=== PATIENT | female | born 1995 | race Two or more races ===

== ENCOUNTER 2021-04-06 06:41 | Inpatient (IN) ==
[2021-04-06] MEDS ORDERED: PITOCIN ONE ×2 (06:50→15:36)
[2021-04-06] MEDS ORDERED: D5 1/2 NS 1,000 ML 1,000 ML IV ONE (06:50)
[2021-04-06] MEDS ORDERED: BETADINE SOLN ONE (06:50)
[2021-04-06] MEDS ORDERED: D5 1/2 NS 1,000 mL + PITOCIN 20 UNITS/L IV 20 UNITS/1,000 ML BAG IV ONE (06:51)
[2021-04-06] MEDS ORDERED: D5 LR + PITOCIN 10 UNITS/L 10 UNITS/1,000 ML BAG IV ONE ×2 (06:51→15:36)
[2021-04-06] MEDS ORDERED: PITOCIN IVP ONE (07:30)
[2021-04-06] MEDS ORDERED: D5 LR + PITOCIN 10 UNITS/L 10 UNITS/1,000 ML BAG IV PRN (07:30)
[2021-04-06] MEDS ORDERED: REGLAN INJ 10 MG VIAL IVP PRN (07:30)
[2021-04-06] MEDS ORDERED: PHENERGAN INJ 25 MG IM PRN (07:30)
[2021-04-06] MEDS ORDERED: STADOL INJ IVP PRN (07:32)
[2021-04-06 08:01] LABS: BASOPHILS % (AUTO) 0.2 % (0.2-1.0); EOSINOPHILS % (AUTO) 0.2 % (0.9-2.9); HEMATOCRIT 36.5 % (36.0-47.0); HEMOGLOBIN 12.2 g/dL (12.0-16.0); LYMPHOCYTES # (AUTO) 1.4 X10^3/uL (1.3-2.9); LYMPHOCYTES % (AUTO) 16.1 % (21.0-51.0); MEAN CORPUSCULAR HEMOGLOBIN 27.9 pg (27.0-34.0); MEAN CORPUSCULAR HGB CONC 33.5 g/dL (33.0-35.0); MEAN CORPUSCULAR VOLUME 83.3 fL (80.0-100.0); MEAN PLATELET VOLUME 8.8 fL (7.4-11.0); MONOCYTES # (AUTO) 0.5 x10^3/uL (0.3-0.8); MONOCYTES % (AUTO) 5.7 % (0.0-13.0); NEUTROPHILS # (AUTO) 6.6 x10^3/uL (2.2-4.8); NEUTROPHILS % (AUTO) 77.8 % (42.0-75.0); PLATELET COUNT 201 X10^3/uL (150.0-450.0); RED BLOOD COUNT 4.38 X10^6/uL (3.5-5.4); RED CELL DISTRIBUTION WIDTH 14.5 % (11.6-16.5); WHITE BLOOD COUNT 8.5 X10^3/uL (3.6-10.0)
[2021-04-06 08:04] LABS: BLOOD UREA NITROGEN 10 mg/dL (7-18); CALCIUM 8.2 mg/dL (8.5-10.1); CARBON DIOXIDE 22.5 mmol/L (21-32); CHLORIDE 105 mmol/L (98-107); CREATININE 0.59 mg/dL (0.55-1.02); SODIUM 138 mmol/L (136-145); eGFR NON BLACK RACES > 60 (>60)
[2021-04-06 08:22] LABS: BILIRUBIN,URINE NEGATIVE (NEGATIVE); BLOOD/HEMOGLOBIN,URINE 1+ (NEGATIVE); GLUCOSE, URINE NEGATIVE (NEGATIVE); KETONES,URINE 1+ (NEGATIVE); LEUKOCYTE ESTERASE ,URINE 1+ (NEGATIVE); NITRITES,URINE NEGATIVE (NEGATIVE); PROTEIN,URINE 2+ (NEGATIVE); UROBILINOGEN,URINE 1+ (NORMAL)
[2021-04-06 08:25] LABS: APPEARANCE,URINE HAZY (CLEAR); COLOR,URINE YELLOW (YELLOW)
[2021-04-06 18:31] VITALS: BP 118/90
== END 2021-04-06 18:40 | disposition home or self-care (01) | DRG 833 ==
LOC: LD 06:41
PROVIDERS: ADMIT Obstetrics & Gynecology Obstetrics; ATTEND Obstetrics & Gynecology Obstetrics
DX: Z20.822 Contact with and (suspected) exposure to COVID-19; Z3A.38 38 weeks gestation of pregnancy; O61.8 Other failed induction of labor

== ENCOUNTER 2021-04-14 06:44 | Inpatient (IN) ==
[2021-04-14] MEDS ORDERED: D5 1/2 NS 1,000 ML 1,000 ML IV ONE (06:55)
[2021-04-14] MEDS ORDERED: PITOCIN ONE (06:55)
[2021-04-14] MEDS ORDERED: D5 LR + PITOCIN 10 UNITS/L 10 UNITS/1,000 ML BAG IV ONE (06:56)
[2021-04-14] MEDS ORDERED: BETADINE SOLN ONE (06:56)
[2021-04-14] MEDS: D5 1/2 NS 1,000 ML 1,000 ML IV SCH ×2 (07:00→18:22)
[2021-04-14] MEDS ORDERED: D5 LR + PITOCIN 10 UNITS/L 10 UNITS/1,000 ML BAG IV PRN (07:15)
[2021-04-14] MEDS ORDERED: PITOCIN IVP ONE (08:13)
[2021-04-14] MEDS ORDERED: STADOL INJ IVP PRN (08:16)
[2021-04-14] MEDS ORDERED: IVERMECTIN PO ONE (09:20)
[2021-04-14 09:26] LABS: ALANINE AMINOTRANSFERASE 15 Units/L (12-78); ASPARTATE AMINO TRANSFERASE 14 Units/L (15-37); BLOOD UREA NITROGEN 10 mg/dL (7-18); CALCIUM 8.2 mg/dL (8.5-10.1); CARBON DIOXIDE 22.4 mmol/L (21-32); CHLORIDE 108 mmol/L (98-107); CREATININE 0.62 mg/dL (0.55-1.02); LACTATE DEHYDROGENASE 293 Units/L (81-234); SODIUM 138 mmol/L (136-145); URIC ACID 5.8 mg/dL (2.6-6.0); eGFR NON BLACK RACES > 60 (>60)
[2021-04-14] MEDS ORDERED: REGEN-COV VIAL 10 ML, DRUG FILTER EXTENSION SET * 1 EA in NS 100 ML IV 100 ML IV NR ×2 (10:16)
[2021-04-14] MEDS ORDERED: NS 100 ML IV 0 ML ONE (10:30)
[2021-04-14] MEDS ORDERED: STADOL INJ ONE (10:55)
[2021-04-14] MEDS: IVERMECTIN PO NR ×2 (11:22→21:30)
[2021-04-14] MEDS ORDERED: LR 1,000 ML IV 1,000 ML IV ONE (12:03)
[2021-04-14] MEDS ORDERED: FENTANYL VIAL INJ 100 mcg ONE ×2 (12:38)
[2021-04-14] MEDS ORDERED: NAROPIN EPIDURAL 0.2% 100 ML ONE (12:38)
[2021-04-14 12:40] LABS: BASOPHILS % (AUTO) 0.4 % (0.2-1.0); EOSINOPHILS % (AUTO) 0.3 % (0.9-2.9); HEMATOCRIT 34.9 % (36.0-47.0); HEMOGLOBIN 11.8 g/dL (12.0-16.0); LYMPHOCYTES # (AUTO) 1.4 X10^3/uL (1.3-2.9); LYMPHOCYTES % (AUTO) 19.8 % (21.0-51.0); MEAN CORPUSCULAR HEMOGLOBIN 28.3 pg (27.0-34.0); MEAN CORPUSCULAR HGB CONC 33.8 g/dL (33.0-35.0); MEAN CORPUSCULAR VOLUME 83.7 fL (80.0-100.0); MONOCYTES # (AUTO) 0.4 x10^3/uL (0.3-0.8); MONOCYTES % (AUTO) 5.6 % (0.0-13.0); NEUTROPHILS # (AUTO) 5.3 x10^3/uL (2.2-4.8); NEUTROPHILS % (AUTO) 73.9 % (42.0-75.0); PLATELET COUNT 188 X10^3/uL (150.0-450.0); RED BLOOD COUNT 4.17 X10^6/uL (3.5-5.4); RED CELL DISTRIBUTION WIDTH 14.9 % (11.6-16.5); WHITE BLOOD COUNT 7.1 X10^3/uL (3.6-10.0)
[2021-04-14] MEDS ORDERED: REGLAN INJ 10 MG VIAL ONE (15:04)
[2021-04-14] MEDS ORDERED: D5 1/2 NS 1,000 mL + PITOCIN 20 UNITS/L IV 20 UNITS/1,000 ML BAG IV ONE (16:04)
[2021-04-14] MEDS ORDERED: MOTRIN TAB 800 MG PO PRN ×2 (17:58→18:44)
[2021-04-14] MEDS ORDERED: PHENERGAN INJ 25 MG IM PRN (17:58)
[2021-04-14] MEDS ORDERED: D5 1/2 NS 1,000 ML 1,000 ML with PITOCIN 20 UNITS IV SCH ×2 (18:00)
[2021-04-14] MEDS ORDERED: DERMOPLAST PAIN RELIEF SPRAY TOP PRN (18:44)
[2021-04-14] MEDS ORDERED: MILK OF MAGNESIA PO PRN (18:44)
[2021-04-14] MEDS ORDERED: AMBIEN PO PRN (18:44)
[2021-04-14 22:22] LABS: BILIRUBIN,URINE NEGATIVE (NEGATIVE); BLOOD/HEMOGLOBIN,URINE 5+ (NEGATIVE); GLUCOSE, URINE NEGATIVE (NEGATIVE); KETONES,URINE 2+ (NEGATIVE); LEUKOCYTE ESTERASE ,URINE 1+ (NEGATIVE); NITRITES,URINE NEGATIVE (NEGATIVE); PROTEIN,URINE 4+ (NEGATIVE); UROBILINOGEN,URINE NORMAL (NORMAL)
[2021-04-14 22:35] LABS: APPEARANCE,URINE CLOUDY (CLEAR); COLOR,URINE BLOODY (YELLOW)
[2021-04-14 22:36] LABS: BACTERIA,URINE TRACE /HPF (NEGATIVE); RBC,URINE TNTC /HPF (0-3); SQUAMOUS EPITHELIAL CELL,UR FEW /HPF (NEGATIVE)
[2021-04-15 05:07] LABS: HEMATOCRIT 31.1 % (36.0-47.0); HEMOGLOBIN 10.8 g/dL (12.0-16.0)
[2021-04-15] MEDS ORDERED: PRENATAL PLUS PO SCH (09:00)
[2021-04-15] MEDS ORDERED: NS 100 ML IV 100 ML with VENOFER 400 MG IV NR ×2 (10:18)
[2021-04-15 20:21] VITALS: BP 131/89
== END 2021-04-15 20:50 | disposition home or self-care (01) | DRG 805 ==
LOC: LD 06:45 → ICU 19:38
PROVIDERS: ADMIT Obstetrics & Gynecology Obstetrics; ATTEND Obstetrics & Gynecology Obstetrics
DX: U07.1 COVID-19; Z37.0 Single live birth; Z3A.39 39 weeks gestation of pregnancy; O98.513 Other viral diseases complicating pregnancy, third trimester; O14.03 Mild to moderate pre-eclampsia, third trimester